=== PATIENT | male | born 1990 | race Hispanic/Latino ===

== ENCOUNTER 2025-02-01 09:35 | Emergency (ER) | payer BC ==
[~2025-02-01] VITALS: Ht 177.8 cm; Wt 140.6 kg
[2025-02-01] MEDS: SODIUM CHLORIDE 0.9% 1000ML 1,000 ML IV STA (10:48)
[2025-02-01] MEDS: ACETAMINOPHEN 1000 MG/100 ML IV STA (10:48)
[2025-02-01] MEDS: ONDANSETRON HCL INJ 2MG/ML 2ML 2 MG/ML VIAL IV STA (10:48)
[2025-02-01 10:58] LABS: BASOPHILS % 0.3 % (0.0-1.0); EOSINOPHILS % 0.0 % (0.0-6.0); LYMPHOCYTES % 19.2 % (18.0-39.1); MONOCYTES % 6.6 % (4.4-11.3); NEUTROPHILS % 73.5 % (38.7-80.0); RED CELL DISTRIBUTION WIDTH 12.2 % (11.7-14.4)
[2025-02-01 11:17] LABS: INR 1.02
[2025-02-01 11:20] LABS: CORONAVIRUS COVID-19 AG NEGATIVE (NEGATIVE); STREPTOCOCCUS GRP A ANTIGEN POSITIVE (NEGATIVE)
[2025-02-01 11:24] LABS: EST GLOMERULAR FILTRATION RATE 91.0 ML/MIN (>=60)
[2025-02-01] MEDS ORDERED: AMOXICILLIN500 MG PO (11:50)
[2025-02-01] MEDS ORDERED: ONDANSETRON ODT4 MG PO (11:50)
[2025-02-01] MEDS ORDERED: DICYCLOMINE HCL20 MG PO (11:50)
[2025-02-01 11:56] VITALS: PULSE 92; RESP 16; TEMP 98.7; O2SAT 99
[2025-02-01] MEDS: KCL 20 MEQ PACKET/ ORAL SOLN PO STA (11:56)
== END 2025-02-01 12:20 | disposition home or self-care (01) ==
LOC: ER 10:25
DX: R50.9 Fever, unspecified (principal); J02.0 Streptococcal pharyngitis; E87.6 Hypokalemia; R11.2 Nausea with vomiting, unspecified; R05.9 Cough, unspecified
CPT/HCPCS: 36415; 71045; 80053; 83518; 83735; 85025; 85610; 87428; 99284; J0131; J2405; J2470; J7030